=== PATIENT | male | born 2000 | race Caucasian/White ===

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

== ENCOUNTER 2022-04-15 17:58 | Emergency (ER) | payer SELFPAY ==
[2022-04-15 18:35] VITALS: BP 120/69; PULSE 97; RESP 18; TEMP 37; O2SAT 100; BMI 24.1
--- NOTE | 2022-04-15 19:03 | HMH.EDUTC ---
[facility] [place] Clinical Impression: Dermatitis Disposition: Home, Self-Care Condition on Discharge: Good Instructions: DI for Contact Dermatitis, DI for Atopic Dermatitis-Adult Additional Instructions: Apply prescribed medication to rash areas as advised May apply aquaphor however if you do apply topical steriod first then apply aquaphor over top Benadryl as prescribed may help with itching If rash continues follow up with your Family Doctor or Dermatology for further evaluation and treatment Straight to ER if any fever or signs of infection Return if needed Straight to ER if any life threatening symptoms Prescriptions: diphenhydrAMINE HCL [Benadryl 25mg Capsule] 1 - 2 tab PO Q4-6H PRN #30 cap PRN Reason: Itching Transmission Status: Received by [facility] Triamcinolone Acetonide [Kenalog 0.1% cream 80gm tube] 1 applic TP BID #80 gm Transmission Status: Received by [facility] Referrals: Yunior Gardiner APRN [Primary Care Provider] - As needed Haylee Walker MD [Referring] - As needed (call for appointment) Time of Disposition: 19:20 Medical Decision Making - Chente Inquiry Pt receiving controlled substance: No Chente was queried for this patient: No Vital Signs: 04/15/22 18:35 04/15/22 19:18 Temperature 98.6 F 98.6 F Temperature Source Oral Pulse Rate 97 H Pulse Rate [Right Brachial] 97 H Respiratory Rate 18 18 Blood Pressure 120/69 Blood Pressure [Right Arm] 120/69 Blood Pressure Mean [Right Arm] 86 Blood Pressure Source [Right Arm] Automatic Cuff Blood Pressure Position [Right Arm] Sitting 02 Sat by Pulse Oximetry 100 Oxygen Delivery Method Room Air [facility] [place] - General Stated complaint: rash on torso Time Seen by Provider: 04/15/22 18:40 Mode of Arrival: Ambulatory Source of Information: Patient Limitations: No Limitations Description of Symptoms (Recalled from Triage Doc. by RN): PATIENT C/O RASH TO BACK AND CHEST SINCE LAST THURSDAY HEENT Symptoms (Recalled from RN notes): No Resp Symptoms (Recalled from RN notes): No Skin Symptoms (Recalled from RN notes): Yes MS Symptoms (Recalled from RN notes): No Functional Status (Recalled from RN notes): WNL - History of Present Illness Provider Complaint: Patient states that he has been having a rash on his back, upper buttock area and chest since last thursday States that they have tried several over the counter and herbal remedies but not helped States that today it was looking a little worse so he came in to get checked out - Related Data Home Medications Medication Instructions Recorded Confirmed Sulfamethoxazole/Trimethoprim 1 each PO BID 08/23/19 08/31/19 [Bactrim DS tablet] cephALEXin [Keflex 500mg Cap] 1,000 mg PO BID 08/23/19 08/31/19 Previous Rx's Medication Instructions Recorded Amoxicillin [Amoxicillin 875MG 875 mg PO Q12H #20 tab 01/06/20 Tab] predniSONE [Prednisone 20mg 20 mg PO BID 5 Days #10 tab 01/06/20 Tab] azithromycin 250 mg tablet 250 mg PO QDAY 5 Days #6 tab 03/07/20 fluticasone propionate 50 1 spray INTRANASAL QDAY #9.9 ml 03/07/20 mcg/actuation nasal spray,suspension mupirocin 2 % topical ointment 1 applic TOPICAL BID #15 g 07/10/20 Dicyclomine HCl [Bentyl 10mg 10 mg PO QID PRN #20 cap 09/10/21 capsule] Triamcinolone Acetonide [Kenalog 1 applic TP BID #80 gm 04/15/22 0.1% cream 80gm tube] diphenhydrAMINE HCL [Benadryl 25mg 1 - 2 tab PO Q4-6H PRN #30 cap 04/15/22 Capsule] Allergies Allergy/AdvReac Type Severity Reaction Status Date / Time No Known Allergies Allergy Verified 08/31/19 09:04 - Worker's Comp Is this a Worker's Comp case?: No [facility] History - Hepatitis A Screen Attestation statement:: This patient has been screened for Hepatitis A risk factors. I have reviewed the patient's past medical history: Yes Medical History: Reports:: Diabetes Mellitus Type 1 Denies:: Cancer, Diabetes Mellitus Type 2 Other
[2022-04-15 19:18] VITALS: BP 120/69; PULSE 97; RESP 18; TEMP 37; O2SAT 100
== END 2022-04-15 19:25 | disposition home or self-care (01) ==
PROVIDERS: Emergency Provider Nurse Practitioner; PCP Nurse Practitioner Family
DX: L30.9 Dermatitis, unspecified (principal); E10.9 Type 1 diabetes mellitus without complications; Z72.0 Tobacco use
CPT/HCPCS: 99211; G0463